=== PATIENT | female | born 1985 ===

== ENCOUNTER 2020-02-12 21:07 | Emergency (ER) | payer SELFPAY ==
[~2020-02-12] VITALS: Ht 162.6 cm; Wt 65.9 kg
[2020-02-12 21:16] VITALS: BP 139/89; Ht 162.6 cm; Wt 65.9 kg
== END 2020-02-12 22:18 | disposition left against medical advice (07) ==
LOC: D.ER 21:07
DX: J02.9 Acute pharyngitis, unspecified (principal)